=== PATIENT | male | born 1975 | race Caucasian/White ===

== ENCOUNTER 2017-11-03 20:53 | Inpatient (IN) | payer OTHER ==
[2017-11-03] MEDS ORDERED: methylPREDNISolone NA SUCC 125 MG/2 ML VIAL IVPUSH ONE (21:18)
--- NOTE | 2017-11-03 21:18 | PDOC ---
Rapid Medical Evaluation Chief Complaint: Allergic Reaction Time Seen by Provider: 11/03/17 21:13 Medical Evaluation: 11/03/17 21:14 The patient presents with a chief complaint of: Allergic reaction to peanuts. Took half a bottle of chilodrens benadryl, did not work, started to feel his throat close, he gave himself Epi pen. Received patient awake with hoarse voice . I have performed a brief in-person evaluation of this patient. Pertinent physical exam findings: VSS, Hoarse voice sent immediately to main ER. I have ordered the following: Solumedrol, sent to ER The patient will proceed to the ED for further evaluation. Discharge Disposition - Diagnosis Allergic reaction Qualifiers: Encounter type: initial encounter Qualified Code(s): T78.40XA - Allergy, unspecified, initial encounter - Referrals - Patient Instructions - Post Discharge Activity
[2017-11-03 21:23] VITALS: BMI 35.3
[2017-11-03] MEDS ORDERED: SODIUM CHLORIDE 1,000 ML IV STA (21:24)
[2017-11-03] MEDS ORDERED: FAMOTIDINE 20 MG/50 ML IVPB 20 MG/50 ML MG IVPB ONE (21:24)
[2017-11-03] MEDS ORDERED: methylPREDNISolone NA SUCC 125 MG/2 ML VIAL ONE (21:29)
[2017-11-03] MEDS ORDERED: EPINEPHrine/PF 1 MG/1 ML (1:1,000) AMPULE ONE (21:29)
[2017-11-03] MEDS ORDERED: EPINEPHrine 1:1,000 0.3 MG/0.3 ML SYR IM ONE ×2 (21:33→21:45)
[2017-11-03] MEDS ORDERED: ALBUTEROL SO4 2.5/IPRATROPIUM 0.5 INH SOL 3 ML VIAL.NEB. NEB ONE ×2 (21:46→22:32)
--- NOTE | 2017-11-03 22:09 | PDOC ---
History of Present Illness - General Chief Complaint: Allergic Reaction Stated Complaint: ALLERGIC REACTION Time Seen by Provider: 11/03/17 21:13 History Source: Patient - History of Present Illness Initial Comments: 11/03/17 22:01 42 year old male after eating noodles with peanuts bib ems with anaphylaxis, hoarse voice, patient gave epi x1 prior to arrival and drank childrens benadryl. history of anaphylaxis requiring close intubation in the past. 11/03/17 22:32 Past History - Past Medical History Allergies/Adverse Reactions: Allergies Allergy/AdvReac Type Severity Reaction Status Date / Time peanut Allergy Severe Difficulty Verified 11/03/17 21:20 Breathing Penicillins Allergy Verified 11/03/17 21:20 CVA: No COPD: No - Immunization History Immunization Up to Date: No - Suicide/Smoking/Psychosocial Hx Smoking History: Unknown if ever smoked Have you smoked in the past 12 months: No Information on smoking cessation initiated: No Hx Alcohol Use: No Drug/Substance Use Hx: No Substance Use Type: None *Physical Exam - Vital Signs Last Vital Signs Temp Pulse Resp BP Pulse Ox 98.4 F 71 14 122/63 100 11/03/17 21:08 11/03/17 21:20 11/03/17 21:20 11/03/17 21:20 11/03/17 21:20 - Physical Exam General Appearance: Yes: Appropriately Dressed, Moderate Distress, Other ( hoarse voice) HEENT: positive: Other (uvula swollen) Neck: positive: Other (+ lip swelling) Respiratory/Chest: positive: Wheezing (b/l expiratory wheezinfg) Cardiovascular: positive: Regular Rhythm, Regular Rate Gastrointestinal/Abdominal: positive: Normal Bowel Sounds, Soft Musculoskeletal: positive: Normal Inspection Extremity: positive: Normal Capillary Refill, Normal Inspection, Normal Range of Motion Integumentary: positive: Normal Color, Dry, Warm Neurologic: positive: Fully Oriented, Alert, Normal Mood/Affect ED Treatment Course - Medications Given in the ED: ED Medications Discontinued Medications Generic Name Dose Route Start Last Admin Trade Name Freq PRN Reason Stop Dose Admin Diphenhydramine HCl 50 mg 11/03/17 21:24 11/03/17 21:50 Benadryl Injection - IVPB 11/03/17 21:25 50 mg ONCE ONE Administration Famotidine/Sodium Chloride 20 mg in 50 mls @ 100 mls/hr 11/03/17 21:24 21:51 Pepcid 20 Mg Premixed Ivpb - IVPB 11/03/17 21:53 100 mls/hr ONCE ONE Administration Methylprednisolone Sodium Succinate 125 mg 11/03/17 21:18 11/03/17 21:50 Solu-Medrol - IVPUSH 11/03/17 21:19 125 mg ONCE ONE Administration Medical Decision Making - Critical Care Time Total Critical Care Time (minutes): 60 Critical Care Statement: The care of this patient involved high complexity decision making to prevent further life threatening deterioration of the patient 's condition and/or to evaluate & treat vital organ system(s) failure or risk of failure. - Medical Decision Making 11/03/17 22:45 A: Anaphylaxis P: CBC CMP EPI x 2 benadryl duoneb solumedrol patient to be admitted for further management. ICU WARP TIER consulted, recommended ICU admission if there are airway obstruction. 11/03/17 22:47 patient signed out to Dr. Huynh. neck xray pending *DC/Admit/Observation/Transfer Diagnosis at time of Disposition: Anaphylactic reaction due to peanuts, initial encounter - Discharge Dispostion Admit: Yes - Referrals Referrals: STAFF,NOT ON [Primary Care Provider] - - Patient Instructions - Post Discharge Activity
[2017-11-03] MEDS: ALBUTEROL SO4 2.5/IPRATROPIUM 0.5 INH SOL 3 ML VIAL.NEB. NEB SCH (22:30)
--- NOTE | 2017-11-03 22:45 | PN ---
Teaching Attending Note Name of Resident: Mireille Mckeon ATTENDING PHYSICIAN STATEMENT I saw and evaluated the patient. I reviewed the resident's note and discussed the case with the resident. I agree with the resident's findings and plan as documented. SUBJECTIVE: 42 Yo M with no pmhx except peanut allergy who presented after eating noodles with peanuts. Pt. drank Children's Benadryl and took home Epi (but was 10 yr old pen). In ED, pt. was evaluated and given epi, pepcid, Solu-Medrol, albuterol nebs. States he feels much improved and denies any throat swelling pain now. Denies any lip or tongue swelling. No chest pain, pressure, palpitations or shortness of breath. OBJECTIVE: Physical: VS: Vital Signs Period Temp Pulse Resp BP Sys/Dobbins Pulse Ox Last 24 Hr 98.4 F 71-78 14-25 122-125/63-63 100-100 GEN: NAD, Resting in bed, Able to speak full sentences clearly HEENT: NCAT, PERRL, Throat without erythema or exudates, Uvular no edema, mild erythema in throat CARD: RRR S1, S2 RESP: CTAB ABD: BSx4, NTD to palpation EXT: - C/C/E ASSESSMENT AND PLAN: 42 Yo M with no pmhx except peanut allergy who presented after eating noodles with peanuts, being admitted for anaphlyaxis 1.) Anaphyaxis secondary to Peanuts - S/P EPI - Solu-MEdrol - Albuterol Nebs - Benadryl - pepcid - IVF - Improved post above treatment, if worsening Sob/edema will repeat epi and above tx with low threshold to intubation 2) Dvt Ppx- - Low Risk - SCDS Place in [facility]
--- NOTE | 2017-11-03 23:25 | HP ---
CHIEF COMPLAINT: anaphylaxis PCP: HISTORY OF PRESENT ILLNESS: 42 y/o M with PMH peanut allergy (causes anaphylaxis), asthma since childhood, without hx intubation, BIBEMS to ED after anaphylaxis and hoarse voice from eating noodles. As per pt, right after he ate noodles this evening, he noticed that something was wrong immediately. His throat started to close and he developed SOB. He subsequently took two epi-pens and children's benadryl, which minorly alleviated his symptoms. Pt then went to the bathroom and started feeling as if he was choking, so his mother called EMS immediately. Pt also endorsed mild frontal SHER. Otherwise, denied fever, chills, current N/V, abdominal pain, or changes in urinary or bowel function. Pt has known food allergies to peanuts (anaphylaxis), grapes (pruritis), and has been told he is allergic to Penicillin as well but is unsure of the reaction. ER course was notable for: (1) Benadryl 50mg IVPb x 1 (2) Pepcid 20mg IVPB x 1 (3) Solumedrol 125mg IVP x 1 (4) Duonebs Recent Travel: none PAST MEDICAL HISTORY: peanut allergy (causes anaphylaxis), asthma since childhood, without hx intubation PAST SURGICAL HISTORY: L ACL repair (2012), L meniscal repair (2007) Social History: Smoking: has smoked cigars socially for years Alcohol: social drinker Drugs: denies Family History: non-contributory Allergies peanut Allergy (Severe, Verified 11/03/17 21:20) Difficulty Breathing Penicillins Allergy (Verified 11/03/17 21:20) Grapes- pruritis HOME MEDICATIONS: -Pt states that he takes advair and proair at home for his asthma. He also takes meds for his seasonal allergies, but is unsure of the name. -Need to verify with pharmacy REVIEW OF SYSTEMS CONSTITUTIONAL: +hoarseness Absent: fever, chills, diaphoresis, generalized weakness, malaise, loss of appetite, weight change HEENT: Absent: rhinorrhea, nasal congestion, throat pain, throat swelling, difficulty swallowing, mouth swelling, ear pain, eye pain, visual changes CARDIOVASCULAR: Absent: chest pain, syncope, palpitations, irregular heart rate, lightheadedness , peripheral edema RESPIRATORY: +SOB Absent: cough, shortness of breath, dyspnea with exertion, orthopnea, wheezing, stridor, hemoptysis GASTROINTESTINAL: Absent: abdominal pain, abdominal distension, nausea, vomiting, diarrhea, constipation, melena, hematochezia GENITOURINARY: Absent: dysuria, frequency, urgency, hesitancy, hematuria, flank pain, genital pain MUSCULOSKELETAL: Absent: myalgia, arthralgia, joint swelling, back pain, neck pain SKIN: Absent: rash, itching, pallor HEMATOLOGIC/IMMUNOLOGIC: Absent: easy bleeding, easy bruising, lymphadenopathy, frequent infections ENDOCRINE: Absent: unexplained weight gain, unexplained weight loss, heat intolerance, cold intolerance NEUROLOGIC: Absent: headache, focal weakness or paresthesias, dizziness, unsteady gait, seizure, mental status changes, bladder or bowel incontinence PSYCHIATRIC: Absent: anxiety, depression, suicidal or homicidal ideation, hallucinations. PHYSICAL EXAMINATION Vital Signs - 24 hr 11/03/17 11/03/17 21:08 21:20 Temperature 98.4 F Pulse Rate 78 71 Respiratory 25 H 14 Rate Blood Pressure 125/63 122/63 O2 Sat by Pulse 100 100 Oximetry (%) GENERAL: Lying with neck extended, awake, alert, and fully oriented, in mild distress HEAD: Normal with no signs of trauma. EYES: Pupils equal, round and reactive to light, extraocular movements intact, sclera anicteric, conjunctiva clear. EARS, NOSE, THROAT: inflammed uvula, mild tonsillar erythema without exudates MOUTH: edematous lips NECK: Normal range of motion, supple LUNGS: Breath sounds equal, clear to auscultation bilaterally. No wheezes, and no crackles. No accessory muscle use. HEART: Regular rate and rhythm, normal S1 and S2 without murmur, rub or gallop. ABDOMEN: Soft, nontender, obese, not distended, normoactive bowel sounds, no guarding, no rebound, no masses. LOWER EXTREMITIES: 2+ posterior tibial pulses, warm, well-perfused. No calf tenderness. No peripheral edema. NEUROLOGICAL: Cranial nerves II-XII intact. Hoarse voice. Laboratory Tests 11/03/17 11/03/17 23:20 23:20 WBC 13.3 H Hgb 13.3 Hct 39.2 Plt Count 209 Sodium 141 Potassium 3.4 L Chloride 106 Carbon Dioxide 25 BUN 14 Creatinine 1.3 Radio soft tissue neck/x-ray: edema/inflammation b/l upper airway (my read) ASSESSMENT/PLAN: 42 y/o M with PMH peanut allergy (causes anaphylaxis), asthma since childhood, without hx intubation, BIBEMS to ED after anaphylaxis and hoarse voice after eating noodles. Pt for admission to tele for anaphylaxis 2/2 peanut exposure. #Anaphylaxis 2/2 peanut exposure -pt clinically improving, with less angioedema, throat swelling has improved. Voice improved -at this time, does not need intubation -if sx's recur, pt may need solumedrol, benadryl, albuterol nebs, pepcid tx repeated -at this time, will wait and watch -IVF #PPX DVT: SCD's #F/E/N -IV NS 125 cc/hr maintenance -Monitor electrolytes -NPO at this time, to prevent aspiration. Reassess in AM #Dispo telemetry Visit type - Emergency Visit Emergency Visit: Yes ED Registration Date: 11/03/17 Care time: The patient presented to the Emergency Department on the above date and was hospitalized for further evaluation of their emergent condition. - New Patient This patient is new to me today: Yes Date on this admission: 11/04/17 - Critical Care Critical Care patient: No
[2017-11-03 23:27] LABS: BASO % 0.5 % (0-2.0); EOS % 2.1 % (0-4.5); HEMATOCRIT 39.2 % (35.4-49); HEMOGLOBIN 13.3 GM/dL (11.7-16.9); LYMPH % 17.6 % (8-40); MCH 29.3 pg (25.7-33.7); MCHC 33.9 g/dl (32.0-35.9); MEAN CELL VOLUME 86.4 fl (80-96); MEAN PLT VOLUME 8.4 fl (7.5-11.1); NEUT % 76.8 % (42.8-82.8); PLATELET COUNT 209 K/MM3 (134-434); RBC 4.54 M/mm3 (4.00-5.60); RDW 13.3 % (11.9-15.9); WHITE BLOOD COUNT 13.3 K/mm3 (4.0-10.0)
[2017-11-03] MEDS ORDERED: HEPARIN NA (PORCINE) 5,000 UNITS/ML 1ML VIAL SQ SCH (23:45)
[2017-11-03 23:49] LABS: ANION GAP 10 (8-16); BLOOD UREA NITROGEN 14 mg/dL (7-18); CALCIUM 8.3 mg/dL (8.5-10.1); CHLORIDE 106 mmol/L (98-107); CO2 25 mmol/L (21-32); CREATININE 1.3 mg/dL (0.7-1.3); GLUCOSE,RANDOM 151 mg/dL (74-106); POTASSIUM 3.4 mmol/L (3.5-5.1); SODIUM 141 mmol/L (136-145)
[2017-11-04] MEDS: SODIUM CHLORIDE 1,000 ML IV SCH ×2 (01:16→15:15)
--- NOTE | 2017-11-04 07:48 | MSN ---
Progress Note (short form) - Note Progress Note: SUBJECTIVE CC: anaphylaxis HPI: Pt is a 42 y/o M with PMHx severe peanut allergy (anaphylaxis), grapes ( pruritus),strawberries (anaphylaxis), possible allergy to PCN (unknown rxn; remembers being allergic as a child), asthma since childhood, who was transported by EMS yesterday evening after anaphylaxis and hoarse voice from eating [place] noodles. He took two epi-pens and children's Benadryl immediately which provided only mild relief. He also reports vomiting for 1 minute straight after eating and attempted to rinse out his mouth in the restroom. He was unable to sip water and after feeling as if he was choking, his mother called EMS. He was given Benadryl 50mg IVPb x 1, Pepcid 20mg IVPBx1, Solumedrol 125 mg IVPx1 and Duonebs in the ED. He states on admission, he did not have any swelling in arms; he reports severe swelling of face and states his face is now normal size. He reports his throat is still tight and voice still raspy but otherwise has no c/o. He denies loss of consciousness, loss of appetite, palpitations, nausea, vomiting (last time vomited was yesterday), or SOB. He states he has mild abdominal discomfort in R flank. The discomfort was described as sharp pain yesterday but is now a dull sensation. He had 1 episode of watery, flaky, brown diarrhea this AM. He reports being admitted to hospital for anaphylaxis 2 times since 2018. He has been to the hospital ED 7 times since 2018. OBJECTIVE Last Vital Signs Temp Pulse Resp BP Pulse Ox 98.4 F 72 18 132/74 98 11/03/17 21:08 11/04/17 06:24 11/04/17 06:24 11/04/17 06:24 11/04/17 06:24 General: Pt lying in bed, comfortable, appears stated age, obese, breathing comfortably on room air. Face: No angioedema of lips. No edema of face. Eyes: PERRLA. EOMI. Throat: Moist mucus membranes. Uvula enlarged. Tongue appears enlarged. Heart: Regular rate, regular rhythm. Normal S1/S2. No murmurs, rubs or gallops appreciated. Lungs: Clear to auscultation all throughout B/L, breath sounds symmetrical. No rhonchi or wheezing. Abdomen: Nondistended, mild discomfort to palpation in R mid flank. Soft to palpation with legs bent. Normoactive bowel sounds in al four quadrants. Extremities: 2+ DP pulses, 2+ radial pulses. Neurological: intact to light touch in UE and LE. symmetrical sensation. 5/5 motor strength LE. [id number] RAD/NECK SOFT TISSUE The prevertebral and retropharyngeal soft tissue planes appear unremarkable in thickness. There is no obvious enlargement of the epiglottis. The subglottic airway demonstrates no gross narrowing. No radiopaque foreign body is identified. Incidental note is made of moderate multilevel cervical degenerative disc space narrowing with associated spondylosis Active Medications Generic Name Dose Route Start Last Admin Trade Name Freq PRN Reason Stop Dose Admin Sodium Chloride 1,000 mls @ 125 mls/hr 11/03/17 23:45 11/04/17 01:16 Normal Saline - IV 125 mls/hr ASDIR BARBARA Administration ASSESSMENT Pt is a 42 y/o M with PMHx severe peanut allergy (anaphylaxis), grapes (pruritus ), possible allergy to PCN (unknown rxn), asthma since childhood, who was transported by EMS yesterday evening after anaphylaxis and hoarse voice from eating noodles contaminated with peanuts. He was admitted to telemetry for anaphylaxis 2/2 peanut exposure. PLAN 1. Anaphylaxis 2/2 peanut exposure * Monitor for clinical improvement * If symptoms recur, will need to restart solumedrol, benadryl, albuterol neds, pepcid * Does not need intubation at this time * IVF NS 1000mls @125 mls/hr 2. Leukocytosis * likely 2/2 steroid use (methylprednisolone) * afebrile * will monitor and trend WBC. 3. PPX * DVT PPX: SCDs 4. F/E/N * Fluids: IVF NS 1000mls @125 mls/hr * Electrolytes: hypokalemia likely due to b2 agonist usage - solumedrol, albuterol; hypocalcemia and hyperglycemia likely 2/2 stress response and increased cortisol * Nutrition: NPO until angioedema resolves.
[2017-11-04 07:50] LABS: BASO % 0.2 % (0-2.0); HEMATOCRIT 41.2 % (35.4-49); HEMOGLOBIN 13.7 GM/dL (11.7-16.9); LYMPH % 8.2 % (8-40); MCH 28.8 pg (25.7-33.7); MCHC 33.2 g/dl (32.0-35.9); MEAN CELL VOLUME 86.9 fl (80-96); MONO % 0.7 % (3.8-10.2); NEUT % 90.9 % (42.8-82.8); PLATELET COUNT 195 K/MM3 (134-434); RBC 4.74 M/mm3 (4.00-5.60); RDW 13.3 % (11.9-15.9); WHITE BLOOD COUNT 9.6 K/mm3 (4.0-10.0)
[2017-11-04 08:28] LABS: ANION GAP 11 (8-16); BLOOD UREA NITROGEN 12 mg/dL (7-18); CALCIUM 8.8 mg/dL (8.5-10.1); CHLORIDE 103 mmol/L (98-107); CO2 25 mmol/L (21-32); CREATININE 1.2 mg/dL (0.7-1.3); GLUCOSE,RANDOM 146 mg/dL (74-106); MAGNESIUM 1.9 mg/dL (1.8-2.4); PHOSPHOROUS 3.9 mg/dL (2.5-4.9); POTASSIUM 5.1 mmol/L (3.5-5.1); SODIUM 139 mmol/L (136-145)
--- NOTE | 2017-11-04 16:13 | DS ---
Physical Exam: SUBJECTIVE: Patient seen and examined. Offers no new complaints. Says he feels much better than yesterday and noticed the swelling decreased. Denies SOB, wheezing, dizziness, and dysphagia. OBJECTIVE: Vital Signs Period Temp Pulse Resp BP Sys/Dobbins Pulse Ox Last 24 Hr 97.8 F-98.4 F 68-78 14-25 113-132/57-74 98-100 PHYSICAL EXAM GENERAL: The patient is awake, alert, and fully oriented, in no acute distress. HEAD: Normal with no signs of trauma. EYES: PERRL, extraocular movements intact, sclera anicteric, conjunctiva clear. ENT: oropharynx clear without exudates, no tongue swelling (improved), uvula with mild swelling (improved) NECK: supple. LUNGS: Breath sounds equal, clear to auscultation bilaterally, no stridor, wheezes, no crackles, no accessory muscle use. HEART: Regular rate and rhythm, S1, S2 without murmur, rub or gallop. ABDOMEN: Soft, nontender, nondistended, normoactive bowel sounds, no guarding, no rebound, no hepatosplenomegaly, no masses. EXTREMITIES: 2+ pulses, warm, well-perfused, no edema. PSYCH: Normal mood, normal affect. SKIN: Warm, dry, normal turgor, no rashes or lesions noted. LABS Laboratory Results - last 24 hr 11/03/17 11/03/17 11/04/17 23:20 23:20 05:55 WBC 13.3 H 9.6 RBC 4.54 4.74 Hgb 13.3 13.7 Hct 39.2 41.2 MCV 86.4 86.9 MCH 29.3 28.8 MCHC 33.9 33.2 RDW 13.3 13.3 Plt Count 209 195 MPV 8.4 9.0 Neutrophils % 76.8 90.9 H Lymphocytes % 17.6 8.2 D Monocytes % 3.0 L 0.7 L Eosinophils % 2.1 0.0 D Basophils % 0.5 0.2 Sodium 141 Potassium 3.4 L Chloride 106 Carbon Dioxide 25 Anion Gap 10 BUN 14 Creatinine 1.3 Random Glucose 151 H Calcium 8.3 L Phosphorus Magnesium 11/04/17 07:16 WBC RBC Hgb Hct MCV MCH MCHC RDW Plt Count MPV Neutrophils % Lymphocytes % Monocytes % Eosinophils % Basophils % Sodium 139 Potassium 5.1 D Chloride 103 Carbon Dioxide 25 Anion Gap 11 BUN 12 Creatinine 1.2 Random Glucose 146 H Calcium 8.8 Phosphorus 3.9 Magnesium 1.9 HOSPITAL COURSE: Date of Admission:11/03/17 Pt is a 42 y/o M with PMHx severe peanut allergy (anaphylaxis), grapes (pruritus ), strawberries (anaphylaxis), possible allergy to PCN (unknown rxn; remembers being allergic as a child), asthma since childhood admitted to ED on 11/03 evening with dyspnea, swollen lips, tongue, uvula, vomiting, nausea and hoarse voice after eating [place] noodles at home. He took two epi-pens and childrens Benadryl at home with mild relief and was transported by EMS to ED secondary to respiratory compromise. Pt did not exhibit stridor. He has been admitted to various hospitals in the past for anaphylaxis. In the ED, pt was hemodynamically stable with pulse rate in 70s. He was given IV Benadryl, IV Pepcid, IV Solumedrol and Duonebs with relief. Labs were insignificant. During his stay, he showed complete resolution of symptoms and is able to tolerate regular diet. In terms of his chronic medical problems, his asthma is well controlled on Proair and Advair HFA inhalers. He did not have acute asthma exacerbation during admission. No changes were made to his home medications. He will be discharged with 2 Epi-pens. Patient is agreeable to discharge to home and all questions were answered prior to discharge. Date of Discharge: 11/04/17 Minutes to complete discharge: 35 Discharge Summary Reason For Visit: PEANUT INDUCED ANAPHYLAXIS, INITIAL ENCO Current Active Problems Anaphylactic reaction due to peanuts, initial encounter (Acute) - Instructions Referrals: STAFF,NOT ON [Primary Care Provider] - - Home Medications Comprehensive Discharge Medication List: Ambulatory Orders Albuterol Sulfate Inhaler - [Ventolin Hfa Inhaler -] 1 - 2 inh PO Q4H PRN Fluticasone/Salmeterol [Advair Hfa 45-21 Mcg Inhaler] 12 gm .ROUTE BID 11/04/17 This patient is new to me today: Yes Date on this admission: 11/04/17 Emergency Visit: Yes ED Registration Date: 11/03/17 Care time: The patient presented to the Emergency Department on the above date and was hospitalized for further evaluation of their emergent condition. Critical Care patient: No - Discharge Referral Referred to [facility] Med P.C.: No
--- NOTE | 2017-11-04 17:59 | PN ---
Teaching Attending Note Name of Resident: Jeffery Rincon ATTENDING PHYSICIAN STATEMENT I saw and evaluated the patient. I reviewed the resident's note and discussed the case with the resident. I agree with the resident's findings and plan as documented. SUBJECTIVE:asymptomatic. states he was unaware when he ate a pre-made box of stephany food last night it contained peanuts. states symptoms resolved when arrived to the hospital. states tongue swelling and throat tingling has resolved. able to control his own saliva. voice is no longer hoarse. tolerating regular food. denies Cp, SOB< fever, chills, N/V/C/D OBJECTIVE: Last Vital Signs Temp Pulse Resp BP Pulse Ox 97.8 F 68 18 121/68 99 11/04/17 14:56 11/04/17 14:56 11/04/17 14:56 11/04/17 14:56 11/04/17 14:02 General NAD HEENT no stridor, uvula midline no swelling or erythema, tongue not swollen, no lip swelling Lungs CTA B/L no wheezing/rales/rhonchi ASSESSMENT AND PLAN: 42yo M with PMH peanut allergy with anaphylxis 1. Anaphylaxis-due to peanut exposure with known allergy. s/p epipen x2 at home. medrol, benadryl and pepcid with resolution of symptoms. monitored x24H. tolerating regular diet. state he and his daughter are both educated on how to inject epipen. advised to avoid products with peanuts. d/c home
[2017-11-04 19:29] VITALS: BP 112/60; PULSE 67; TEMP 98.8
== END 2017-11-04 18:34 | disposition home or self-care (01) | DRG 916 ==
LOC: JER 20:53 → JERBED 22:47 → UNDOADMIN 23:41 → J4W 11-04 14:45
PROVIDERS: ADMIT Internal Medicine; ATTEND Internal Medicine
DX: T78.01XA Anaphylactic reaction due to peanuts, initial encounter (principal); Z88.0 Allergy status to penicillin; D72.829 Elevated white blood cell count, unspecified
CPT/HCPCS: 36415; 70360-TC; 80048; 83735; 84100; 85025; 99285-25